=== PATIENT | female | born 1945 | race Caucasian/White ===

== ENCOUNTER 2017-10-29 09:29 | Day surgery (SDC) | payer OTHER ==
[~2017-10-29] VITALS: Ht 157.5 cm; Wt 68.6 kg
[~2017-10-29 09:29] MED LIST: AMLO10 PO; AMLO5 PO; ASPI325 PO; ASPI81CH PO; BUTALB-ACETAMI1 EAC1 PO; CLOP75; CLOP75 PO; Crestor40 MG PO; FENO48 PO; LOSA50 PO; METO25ER PO; NITR.4TPA SL; Omeprazole20 M1 PO; PANT40 PO; Pepcid40 MG PO; Prozac20 MG PO; Prozac40 MG PO; RANO500T PO; SIMV80 PO; SUCR1 PO; TOPI100 PO; TOPI50 PO; TRAM50 PO; TRIHYD253B PO; VENL75ER PO; VITAMIN D33000 UNIT PO; Zanaflex4 M1 PO
== END 2017-10-29 11:50 | disposition home or self-care (01) ==
LOC: ORSCSDS 09:29
PROVIDERS: Anesthesiology
PROC: 3E0R33Z Introduction of Anti-inflammatory into Spinal Canal, Percutaneous Approach (ICD-10-PCS; principal; 2017-10-29 10:15)
DX: M54.16 Radiculopathy, lumbar region (principal); F32.9 Major depressive disorder, single episode, unspecified; E78.5 Hyperlipidemia, unspecified; Z79.01 Long term (current) use of anticoagulants; Z79.82 Long term (current) use of aspirin; Z79.899 Other long term (current) drug therapy
CPT/HCPCS: J1040

== ENCOUNTER → 2018-06-17 | Outpatient (CLI) | payer OTHER | END | disposition home or self-care (01) | LOC: LAB SHORT 08:23 → PLD 08:23 | DX: D48.5 Neoplasm of uncertain behavior of skin (principal) | CPT/HCPCS: 88305 ==

== ENCOUNTER → 2019-09-29 | Outpatient (CLI) | payer OTHER ==
[2019-09-29 12:36] LABS: Bun/Creatinine Ratio 13.5 (12.0-20.0); Calcium, Blood 8.6 mg/dL (8.5-10.1); Creatinine, Blood 1.33 mg/dL (0.40-1.00); Potassium, Blood 3.9 mmol/L (3.5-5.5)
== END | disposition home or self-care (01) ==
LOC: LAB EV 12:25 → LAB SHORT 12:25
PROVIDERS: Physician Assistant
DX: R55 Syncope and collapse (principal)
CPT/HCPCS: 80048

== ENCOUNTER 2019-11-06 07:52 | Day surgery (SDC) | payer OTHER ==
[~2019-11-06] VITALS: Ht 157.5 cm; Wt 69.5 kg
[2019-11-06 08:33] LABS: BASOPHILS ABSOLUTE AUTO 0.06 K/mm3 (0.00-0.23); BASOPHILS PERCENT AUTO 1 % (0-2); EOSINOPHILS ABSOLUTE AUTO 0.23 K/mm3 (0.00-0.68); EOSINOPHILS PERCENT AUTO 3 % (0-6); Hematocrit 40.7 % (33.0-51.0); Hemoglobin 13.5 g/dL (11.5-16.0); IMMATURE GRAN ABSOLUTE AUTO 0.01 K/mm3 (0.00-0.10); IMMATURE GRAN PERCENT AUTO 0 % (0-1); LYMPHOCYTES ABSOLUTE AUTO 2.51 K/mm3 (0.84-5.20); LYMPHOCYTES PERCENT AUTO 36 % (21-46); MONOCYTES ABSOLUTE AUTO 0.44 K/mm3 (0.16-1.47); MONOCYTES PERCENT AUTO 6 % (4-13); Mean Corpuscular HGB 28.7 pg (26.0-34.0); Mean Corpuscular HGB Conc 33.2 g/dL (31.5-36.5); Mean Corpuscular Volume 87 fL (80-100); Mean Platelet Volume 11.4 fL (9.1-12.4); NEUTROPHILS ABSOLUTE AUTO 3.78 K/mm3 (1.96-9.15); NEUTROPHILS PERCENT AUTO 54 % (41-73); Platelet Count 211 K/mm3 (150-400); RDW Coefficient Variation 14.9 % (11.7-14.2); RDW Standard Deviation 47.7 fL (35.1-46.3); White Blood Cell Count 7.03 K/mm3 (4.00-11.30)
[2019-11-06] MEDS ORDERED: GABA300 PO (08:39)
[2019-11-06 08:45] LABS: International Normalized Ratio 1.03
[2019-11-06 08:50] LABS: Anion Gap 9 mmol/L (6-16); Blood Urea Nitrogen 26 mg/dL (8-24); Bun/Creatinine Ratio 25.7 (12.0-20.0); CHOL/HDL RATIO 3.1; CO2, Blood 22 mmol/L (21-32); Calcium, Blood 8.9 mg/dL (8.5-10.1); Chloride, Blood 109 mmol/L (98-108); Cholesterol 215 mg/dL (50-200); Creatinine, Blood 1.01 mg/dL (0.40-1.00); Glomerular Filtration Rate 57 (60-); Glucose, Blood 118 mg/dL (70-99); HDL Cholesterol 70 mg/dL (>39); LDL/HDL RATIO 1.7; Low Density Lipoprotein Chol 116 mg/dL (0-110); Potassium, Blood 3.9 mmol/L (3.5-5.5); Sodium, Blood 140 mmol/L (136-145); Triglycerides 145 mg/dL (30-160); Very Low Density Lipoprot Chol 29 mg/dL (6-32)
--- NOTE | 2019-11-06 09:05 | NUR ---
CALL LIGHT IN REACH AND IN ROOM
--- NOTE | 2019-11-06 14:35 | NUR ---
PT DRESSED, IV DC'D INTACT, TR BAND REMOVED, DRESSING TO R RADIAL ACCESS SITE, R WRIST SPLINT IN PLACE, PT DC'D BY ESCORT W DRIVING PT HOME
== END 2019-11-06 15:36 | disposition home or self-care (01) ==
LOC: MHTC 07:52
PROVIDERS: Internal Medicine Cardiovascular Disease
PROC: B201YZZ Plain Radiography of Multiple Coronary Arteries using Other Contrast (ICD-10-PCS; principal; 2019-11-06)
PROC: 4A023N7 Measurement of Cardiac Sampling and Pressure, Left Heart, Percutaneous Approach (ICD-10-PCS; principal; 2019-11-06)
DX: I35.0 Nonrheumatic aortic (valve) stenosis (principal); I25.10 Atherosclerotic heart disease of native coronary artery without angina pectoris; E78.5 Hyperlipidemia, unspecified; I12.9 Hypertensive chronic kidney disease with stage 1 through stage 4 chronic kidney disease, or unspecified chronic kidney disease; N18.9 Chronic kidney disease, unspecified; K21.9 Gastro-esophageal reflux disease without esophagitis; F32.9 Major depressive disorder, single episode, unspecified; G43.909 Migraine, unspecified, not intractable, without status migrainosus; I27.20 Pulmonary hypertension, unspecified; E66.3 Overweight; Z79.82 Long term (current) use of aspirin; Z79.02 Long term (current) use of antithrombotics/antiplatelets; Z79.899 Other long term (current) drug therapy; Z88.8 Allergy status to other drugs, medicaments and biological substances; Z88.5 Allergy status to narcotic agent; Z88.6 Allergy status to analgesic agent; Z68.28 Body mass index [BMI] 28.0-28.9, adult
CPT/HCPCS: 36415; 80048; 80061; 85025; 85347; 85610; A9270; C1769; C1887; C1894; J0153; J1644; J2250; J3010; J7030

== ENCOUNTER 2020-11-01 09:51 | Day surgery (SDC) | payer OTHER ==
[~2020-11-01] VITALS: Ht 157.5 cm; Wt 72.6 kg
[~2020-11-01 09:51] MED LIST changes: -AMLO10 PO; -BUTALB-ACETAMI1 EAC1 PO; -CLOP75; -Crestor40 MG PO; -NITR.4TPA SL; -TOPI50 PO; -TRAM50 PO; -VENL75ER PO; -VITAMIN D33000 UNIT PO
--- NOTE | 2020-11-01 10:56 | NUR ---
11/01/20 1056 Sari Johnson CALL LIGHT WITHIN REACH
--- NOTE | 2020-11-01 14:34 | NUR ---
11/01/20 1434 THERESE MEYER PT WAS SETTLED INTO RELCINER IN STEPDOWN W/SBA. PT OFFERED SIP OF WATER. PT DENIES PAIN OR NAUSEA AT THIS TIME. PT ADVISED i WILL CONTACT PT'S . UPON RETURNING TO PT IN STEPDOWN, PT REPORTS CHEST PAIN IN LEFT BREAST AREA. PT DENIES NAUSEA, DIZZINESS, LIGHTHEADEDNESS, CHEST PRESSURE. DENIES WORSENING WITH BREATHING. REPORTS IT JUST NOW STARTED. PT IMMEDIATELY PUT ON 12 LEAD EKG AND READING WAS LEFT BUNDLE BRANCH BLOCK. DR. MAHARAJ WAS CONSULTED AND ADVISED PT TO BE REFERRED TO ER BASED ON CARDIAC HX.
[2020-11-01] MEDS ORDERED: TRAM50 PO (14:53)
[2020-11-01] MEDS ORDERED: AMLO5 PO (14:53)
[2020-11-01] MEDS ORDERED: BUTALB-CAFF-AC1 EACH PO (14:55)
[2020-11-01] MEDS ORDERED: DOXA2 PO (14:56)
[2020-11-01] MEDS ORDERED: GABA300 PO (14:56)
[2020-11-01] MEDS ORDERED: PANTOPRAZOLE SO40 M2 PO (14:57)
[2020-11-01] MEDS ORDERED: TOPI50 PO (14:58)
[2020-11-01] MEDS ORDERED: Crestor40 MG PO (14:58)
[2020-11-01] MEDS ORDERED: TOPI100 PO (14:59)
[2020-11-01] MEDS ORDERED: VENL75ER PO (15:00)
[2020-11-01] MEDS ORDERED: IRBESARTAN150 M2 PO (15:01)
[2020-11-01] MEDS ORDERED: NITR.4SL SL (16:12)
[2020-11-01] MEDS ORDERED: SUCR1 PO (16:14)
[2020-11-01] MEDS ORDERED: ASPI325EC PO (16:14)
[2020-11-01] MEDS ORDERED: THERA-D2000 UNIT PO (16:14)
[2020-11-01] MEDS ORDERED: Vitamin B Comple1 EA PO (16:15)
[2020-11-01] MEDS ORDERED: CALCIUM 600 +1 EAC7 PO (16:16)
[2020-11-01] MEDS ORDERED: Norco 5-325 Ta1 EACH PO (16:34)
== END 2020-11-01 14:26 | disposition home or self-care (01) ==
LOC: ORSCSDS 09:51
PROVIDERS: Orthopaedic Surgery
PROC: 0LQ24ZZ Repair Left Shoulder Tendon, Percutaneous Endoscopic Approach (ICD-10-PCS; principal; 2020-11-01 11:15)
PROC: 0RNK4ZZ Release Left Shoulder Joint, Percutaneous Endoscopic Approach (ICD-10-PCS; principal; 2020-11-01 11:15)
PROC: 0LU24KZ Supplement Left Shoulder Tendon with Nonautologous Tissue Substitute, Percutaneous Endoscopic Approach (ICD-10-PCS; principal; 2020-11-01 11:15)
PROC: 0RBK4ZZ Excision of Left Shoulder Joint, Percutaneous Endoscopic Approach (ICD-10-PCS; principal; 2020-11-01 11:15)
DX: M75.112 Incomplete rotator cuff tear or rupture of left shoulder, not specified as traumatic (principal); M75.22 Bicipital tendinitis, left shoulder; M75.42 Impingement syndrome of left shoulder; M75.32 Calcific tendinitis of left shoulder; I10 Essential (primary) hypertension; I25.10 Atherosclerotic heart disease of native coronary artery without angina pectoris; E78.5 Hyperlipidemia, unspecified; K21.9 Gastro-esophageal reflux disease without esophagitis; Z79.82 Long term (current) use of aspirin; Z79.899 Other long term (current) drug therapy; Z79.01 Long term (current) use of anticoagulants
CPT/HCPCS: C1713; J0171; J0690; J1100; J2250; J2405; J2704; J3010; J7120

== ENCOUNTER 2020-11-01 14:11 | Emergency (ER) | payer OTHER ==
[~2020-11-01] VITALS: Ht 157.5 cm; Wt 71.2 kg
[2020-11-01] MEDS ORDERED: TRAM50 PO (14:53)
[2020-11-01] MEDS ORDERED: AMLO5 PO (14:53)
[2020-11-01] MEDS ORDERED: BUTALB-CAFF-AC1 EACH PO (14:55)
[2020-11-01] MEDS ORDERED: GABA300 PO (14:56)
[2020-11-01] MEDS ORDERED: DOXA2 PO (14:56)
[2020-11-01] MEDS ORDERED: PANTOPRAZOLE SO40 M2 PO (14:57)
[2020-11-01] MEDS ORDERED: TOPI50 PO (14:58)
[2020-11-01] MEDS ORDERED: Crestor40 MG PO (14:58)
[2020-11-01] MEDS ORDERED: TOPI100 PO (14:59)
[2020-11-01] MEDS ORDERED: VENL75ER PO (15:00)
[2020-11-01] MEDS ORDERED: IRBESARTAN150 M2 PO (15:01)
[2020-11-01 15:31] LABS: BASOPHILS ABSOLUTE AUTO 0.08 K/mm3 (0.00-0.23); BASOPHILS PERCENT AUTO 1 % (0-2); EOSINOPHILS ABSOLUTE AUTO 0.08 K/mm3 (0.00-0.68); EOSINOPHILS PERCENT AUTO 1 % (0-6); Hematocrit 40.4 % (33.0-51.0); IMMATURE GRAN ABSOLUTE AUTO 0.04 K/mm3 (0.00-0.10); IMMATURE GRAN PERCENT AUTO 0 % (0-1); LYMPHOCYTES ABSOLUTE AUTO 1.37 K/mm3 (0.84-5.20); LYMPHOCYTES PERCENT AUTO 15 % (21-46); MONOCYTES PERCENT AUTO 2 % (4-13); Mean Corpuscular HGB 26.9 pg (26.0-34.0); Mean Corpuscular HGB Conc 29.7 g/dL (31.5-36.5); Mean Corpuscular Volume 91 fL (80-100); Mean Platelet Volume 11.3 fL (9.1-12.4); NEUTROPHILS ABSOLUTE AUTO 7.55 K/mm3 (1.96-9.15); NEUTROPHILS PERCENT AUTO 81 % (41-73); Platelet Count 176 K/mm3 (150-400); RDW Coefficient Variation 14.2 % (11.7-14.2); RDW Standard Deviation 47.5 fL (35.1-46.3); Red Blood Cell Count 4.46 M/mm3 (3.80-5.20); White Blood Cell Count 9.32 K/mm3 (4.00-11.30)
[2020-11-01 16:02] LABS: Alanine Aminotransfer (ALT/SGP 30 U/L (12-78); Albumin, Blood 3.6 g/dL (3.4-5.0); Alk Phos 78 U/L (50-136); Anion Gap 10 mmol/L (6-16); Aspartate Aminotrans (AST/SGOT 19 U/L (12-37); Bilirubin, Total 0.2 mg/dL (0.1-1.0); Blood Urea Nitrogen 24 mg/dL (8-24); Bun/Creatinine Ratio 24.9 (12.0-20.0); CO2, Blood 21 mmol/L (21-32); Calcium, Blood 8.9 mg/dL (8.5-10.1); Chloride, Blood 111 mmol/L (98-108); Creatinine, Blood 0.97 mg/dL (0.40-1.00); Globulin, Blood 3.6 g/dL (2.2-4.0); Glomerular Filtration Rate >60 (60-); Glucose, Blood 149 mg/dL (70-99); Potassium, Blood 3.5 mmol/L (3.5-5.5); Sodium, Blood 142 mmol/L (136-145); Total Protein, Blood 7.2 g/dL (6.4-8.2); Troponin I <0.015 ng/mL (0.000-0.040)
[2020-11-01] MEDS ORDERED: NITR.4SL SL (16:12)
[2020-11-01] MEDS ORDERED: THERA-D2000 UNIT PO (16:14)
[2020-11-01] MEDS ORDERED: SUCR1 PO (16:14)
[2020-11-01] MEDS ORDERED: ASPI325EC PO (16:14)
[2020-11-01] MEDS ORDERED: Vitamin B Comple1 EA PO (16:15)
[2020-11-01] MEDS ORDERED: CALCIUM 600 +1 EAC7 PO (16:16)
[2020-11-01] MEDS ORDERED: Norco 5-325 Ta1 EACH PO (16:34)
== END 2020-11-01 17:13 | disposition home or self-care (01) ==
LOC: ER 14:11
PROVIDERS: Physician Assistant
DX: R07.9 Chest pain, unspecified (principal); I10 Essential (primary) hypertension; E78.5 Hyperlipidemia, unspecified; Z79.82 Long term (current) use of aspirin; Z79.899 Other long term (current) drug therapy; Z98.890 Other specified postprocedural states; Z88.5 Allergy status to narcotic agent; Z88.8 Allergy status to other drugs, medicaments and biological substances
CPT/HCPCS: 36415; 71046; 80053; 84484; 85025; 93005; 93010; 96374; 96376; 99285-25; J1170

== ENCOUNTER → 2022-09-09 | Outpatient (CLI) | payer OTHER ==
[~2022-09-09] MED LIST changes: +ASPI325EC PO; +BUTALB-CAFF-AC1 EACH PO; +CALCIUM 600 +1 EAC7 PO; +Crestor40 MG PO; +DOXA2 PO; +GABA300 PO; +IRBESARTAN150 M2 PO; +NITR.4SL SL; +Norco 5-325 Ta1 EACH PO; +PANTOPRAZOLE SO40 M2 PO; +THERA-D2000 UNIT PO; +TOPI50 PO; +TRAM50 PO; +VENL75ER PO; +Vitamin B Comple1 EA PO
== END | disposition home or self-care (01) ==
LOC: LAB SHORT 14:02 → LAB 14:02
DX: N39.0 Urinary tract infection, site not specified (principal)
CPT/HCPCS: 87077; 87086; 87147; 87186

== ENCOUNTER → 2023-02-04 | Outpatient (CLI) | payer OTHER | LOC: PLD 15:15 → LAB SHORT 15:15 | DX: D48.5 Neoplasm of uncertain behavior of skin (principal) | CPT/HCPCS: 88305 ==

== ENCOUNTER → 2023-04-17 | Outpatient (CLI) | payer OTHER ==
[2023-04-17 12:03] LABS: Creatinine, Urine Random 60.3 mg/dL (27.00-270.00)
[2023-04-17 12:06] LABS: Microalb/Creat Ratio UR, Rand 15.323 mg/g (0.000-30.000); Microalbumin, Random Urine 9.24 mg/L (0.000-20.000)
== END | disposition home or self-care (01) ==
LOC: LAB SHORT 09:49 → LAB 09:49
PROVIDERS: Hospitalist
DX: I13.0 Hypertensive heart and chronic kidney disease with heart failure and stage 1 through stage 4 chronic kidney disease, or unspecified chronic kidney disease (principal); I50.30 Unspecified diastolic (congestive) heart failure; N18.9 Chronic kidney disease, unspecified
CPT/HCPCS: 82043; 82570

== ENCOUNTER → 2023-04-29 | Outpatient (CLI) | payer OTHER | END | disposition home or self-care (01) | LOC: LAB 18:25 → LAB SHORT 18:25 | DX: N39.0 Urinary tract infection, site not specified (principal) | CPT/HCPCS: 87077; 87086; 87186 ==

== ENCOUNTER 2024-06-02 06:41 | Day surgery (SDC) | payer OTHER ==
[~2024-06-02] VITALS: Ht 157.5 cm; Wt 71.8 kg
[~2024-06-02 06:41] MED LIST changes: +Balanced Salt Epinephrine Irrigation Solution 500 mL IR SCH; +Lidocaine HCl/Pf 1% 5 ML VIAL XX SCH; +Moxifloxacin HCL 0.5 MG/0.1 ML 0.4MLSYR RIGHTEYE SCH; +NS 500 ML IV ONE; +PHENYLEPHRINE\\TROPICAMIDE\\TETRACAINE OPHTHALMIC DILATING SOLN RIGHTEYE PRN; +Povidone-Iodine 450 DROP/30 ML Solution RIGHTEYE SCH
[2024-06-02] MEDS ORDERED: Lidocaine HCl/Pf 1% 5 ML VIAL ONE (06:48)
[2024-06-02] MEDS ORDERED: FentaNYL Citrate 50 MCG/ML 2 ML Injection ONE (06:52)
[2024-06-02] MEDS ORDERED: Midazolam HCl 1MG / ML 2ML Vial ONE (06:52)
[2024-06-02] MEDS ORDERED: TOPI50 PO (07:24)
[2024-06-02] MEDS ORDERED: FOSAMAX70 MG PO (07:25)
[2024-06-02] MEDS ORDERED: Percocet 5-3251 EACH (07:26)
[2024-06-02] MEDS ORDERED: HYDCHL25 PO (07:28)
[2024-06-02] MEDS ORDERED: NS 500 ML IV ONE (07:42)
[2024-06-02 08:28] VITALS: BP 155/65
== END 2024-06-02 08:32 | disposition home or self-care (01) ==
LOC: ORSCSDS 06:41
PROVIDERS: Student in an Organized Health Care Education/Training Program
PROC: 08RJ3JZ Replacement of Right Lens with Synthetic Substitute, Percutaneous Approach (ICD-10-PCS; principal; 2024-06-02 08:00)
DX: H25.813 Combined forms of age-related cataract, bilateral (principal); I10 Essential (primary) hypertension; K21.9 Gastro-esophageal reflux disease without esophagitis; Z79.82 Long term (current) use of aspirin; Z79.899 Other long term (current) drug therapy
CPT/HCPCS: 82947; J2001; J2250; J3010; J7040; V2632

== ENCOUNTER 2024-06-09 06:56 | Day surgery (SDC) | payer OTHER ==
[~2024-06-09] VITALS: Ht 157.5 cm; Wt 71.7 kg
[~2024-06-09 06:56] MED LIST changes: +FOSAMAX70 MG PO; +HYDCHL25 PO; +Lidocaine HCl/Pf 1% 5 ML VIAL ONE; +Moxifloxacin HCL 0.5 MG/0.1 ML 0.4MLSYR LEFTEYE SCH; -Moxifloxacin HCL 0.5 MG/0.1 ML 0.4MLSYR RIGHTEYE SCH; +PHENYLEPHRINE\\TROPICAMIDE\\TETRACAINE OPHTHALMIC DILATING SOLN LEFTEYE PRN; -PHENYLEPHRINE\\TROPICAMIDE\\TETRACAINE OPHTHALMIC DILATING SOLN RIGHTEYE PRN; +Percocet 5-3251 EACH; +Povidone-Iodine 450 DROP/30 ML Solution LEFTEYE SCH; -Povidone-Iodine 450 DROP/30 ML Solution RIGHTEYE SCH
[2024-06-09] MEDS ORDERED: NS 500 ML IV ONE (07:41)
[2024-06-09] MEDS ORDERED: Povidone-Iodine 450 DROP/30 ML Solution XX ONE (07:50)
[2024-06-09] MEDS ORDERED: Midazolam HCl 1MG / ML 2ML Vial ONE (07:54)
[2024-06-09] MEDS ORDERED: Balanced Salt Epinephrine Irrigation Solution 500 mL IR ONE (08:02)
[2024-06-09] MEDS ORDERED: Moxifloxacin HCL 0.5 MG/0.1 ML 0.4MLSYR XX ONE (08:02)
[2024-06-09 08:21] VITALS: BP 148/63
== END 2024-06-09 08:38 | disposition home or self-care (01) ==
LOC: ORSCSDS 06:56
PROVIDERS: Student in an Organized Health Care Education/Training Program
PROC: 08RK3JZ Replacement of Left Lens with Synthetic Substitute, Percutaneous Approach (ICD-10-PCS; principal; 2024-06-09 08:00)
DX: E11.36 Type 2 diabetes mellitus with diabetic cataract (principal); H25.812 Combined forms of age-related cataract, left eye; I10 Essential (primary) hypertension; Z96.1 Presence of intraocular lens; Z79.899 Other long term (current) drug therapy
CPT/HCPCS: 82947; J2001; J2250; J7040; V2632

== ENCOUNTER 2024-12-03 20:31 | Observation (INO) | payer OTHER ==
[~2024-12-03] VITALS: Ht 165.1 cm; Wt 79.4 kg
[~2024-12-03 20:31] MED LIST changes: -Balanced Salt Epinephrine Irrigation Solution 500 mL IR SCH; -Lidocaine HCl/Pf 1% 5 ML VIAL ONE; -Lidocaine HCl/Pf 1% 5 ML VIAL XX SCH; -Moxifloxacin HCL 0.5 MG/0.1 ML 0.4MLSYR LEFTEYE SCH; -NS 500 ML IV ONE; -PHENYLEPHRINE\\TROPICAMIDE\\TETRACAINE OPHTHALMIC DILATING SOLN LEFTEYE PRN; -Povidone-Iodine 450 DROP/30 ML Solution LEFTEYE SCH
[2024-12-03 21:15] LABS: BASOPHILS ABSOLUTE AUTO 0.12 K/mm3 (0.00-0.23); BASOPHILS PERCENT AUTO 1 % (0-2); EOSINOPHILS PERCENT AUTO 4 % (0-6); Hematocrit 36.2 % (33.0-51.0); Hemoglobin 12.4 g/dL (11.5-16.0); IMMATURE GRAN ABSOLUTE AUTO 0.05 K/mm3 (0.00-0.10); IMMATURE GRAN PERCENT AUTO 1 % (0-1); LYMPHOCYTES ABSOLUTE AUTO 3.18 K/mm3 (0.84-5.20); LYMPHOCYTES PERCENT AUTO 34 % (21-46); MONOCYTES PERCENT AUTO 8 % (4-13); Mean Corpuscular HGB Conc 34.3 g/dL (31.5-36.5); Mean Corpuscular Volume 87 fL (80-100); Mean Platelet Volume 10.7 fL (9.1-12.4); NEUTROPHILS PERCENT AUTO 52 % (41-73); Platelet Count 236 K/mm3 (150-400); RDW Coefficient Variation 13.9 % (11.7-14.2); RDW Standard Deviation 44.7 fL (35.1-46.3); Red Blood Cell Count 4.14 M/mm3 (3.80-5.20); White Blood Cell Count 9.35 K/mm3 (4.00-11.30)
[2024-12-03 21:33] LABS: International Normalized Ratio 0.97; Prothrombin Time Results 10.4 Sec (9.7-11.5)
[2024-12-03 21:48] LABS: Albumin, Blood 3.6 g/dL (3.4-5.0); Albumin/Globulin Ratio 0.9 (0.8-1.8); Bilirubin, Total 0.5 mg/dL (0.1-1.0); Bun/Creatinine Ratio 18.3 (12.0-20.0); Calcium, Blood 8.8 mg/dL (8.5-10.1); Creatinine, Blood 1.2 mg/dL (0.40-1.00); Globulin, Blood 4.1 g/dL (2.2-4.0); Potassium, Blood 3.6 mmol/L (3.5-5.5); Total Protein, Blood 7.7 g/dL (6.4-8.2)
[2024-12-04] MEDS ORDERED: FLU VACC TS2024-25(6MOS UP)/PF 45 MCG/0.5 ML SYRINGE IM ONE (00:30)
[2024-12-04] MEDS ORDERED: Magnesium Hydroxide Conc 10 ML UDC PO PRN (00:30)
[2024-12-04] MEDS ORDERED: Ondansetron HCl 2 MG / ML 2ML Vial IV PRN (00:30)
[2024-12-04] MEDS ORDERED: Clopidogrel Bisulfate 300 MG Cap PO ONE (00:40)
[2024-12-04 07:27] LABS: BASOPHILS ABSOLUTE AUTO 0.14 K/mm3 (0.00-0.23); BASOPHILS PERCENT AUTO 1 % (0-2); EOSINOPHILS ABSOLUTE AUTO 0.45 K/mm3 (0.00-0.68); EOSINOPHILS PERCENT AUTO 4 % (0-6); Hemoglobin 12.3 g/dL (11.5-16.0); IMMATURE GRAN ABSOLUTE AUTO 0.06 K/mm3 (0.00-0.10); IMMATURE GRAN PERCENT AUTO 1 % (0-1); LYMPHOCYTES ABSOLUTE AUTO 3.24 K/mm3 (0.84-5.20); LYMPHOCYTES PERCENT AUTO 28 % (21-46); MONOCYTES ABSOLUTE AUTO 0.82 K/mm3 (0.16-1.47); MONOCYTES PERCENT AUTO 7 % (4-13); Mean Corpuscular HGB 30.4 pg (26.0-34.0); Mean Corpuscular HGB Conc 35.1 g/dL (31.5-36.5); Mean Corpuscular Volume 87 fL (80-100); Mean Platelet Volume 10.9 fL (9.1-12.4); NEUTROPHILS ABSOLUTE AUTO 7.05 K/mm3 (1.96-9.15); NEUTROPHILS PERCENT AUTO 60 % (41-73); Platelet Count 234 K/mm3 (150-400); RDW Standard Deviation 44.6 fL (35.1-46.3); Red Blood Cell Count 4.04 M/mm3 (3.80-5.20); White Blood Cell Count 11.76 K/mm3 (4.00-11.30)
[2024-12-04 07:40] LABS: Albumin, Blood 3.5 g/dL (3.4-5.0); Albumin/Globulin Ratio 0.9 (0.8-1.8); Bilirubin, Total 0.5 mg/dL (0.1-1.0); Bun/Creatinine Ratio 18.9 (12.0-20.0); Calcium, Blood 9.2 mg/dL (8.5-10.1); Creatinine, Blood 1.11 mg/dL (0.40-1.00); Globulin, Blood 3.7 g/dL (2.2-4.0); Potassium, Blood 3.5 mmol/L (3.5-5.5); Total Protein, Blood 7.2 g/dL (6.4-8.2)
[2024-12-04 07:44] LABS: CHOL/HDL RATIO 2.9; Cholesterol 197 mg/dL (50-200); HDL Cholesterol 68 mg/dL (>39); LDL/HDL RATIO 1.4; Low Density Lipoprotein Chol 92 mg/dL (0-110); Triglycerides 184 mg/dL (30-160); Very Low Density Lipoprot Chol 36 mg/dL (6-32)
[2024-12-04] MEDS ORDERED: Clopidogrel Bisulfate 75 MG Tab PO SCH (09:00)
[2024-12-04] MEDS ORDERED: Sennosides 8.6 MG Tab PO SCH (09:00)
[2024-12-04] MEDS ORDERED: Irbesartan 150 MG Tab PO SCH (09:00)
[2024-12-04] MEDS ORDERED: HydroCHLOROthiazide 25 mg Tab PO SCH (09:00)
[2024-12-04] MEDS ORDERED: Heparin Sodium 5000 Units/ML 1ML MDV SC SCH (09:00)
[2024-12-04] MEDS ORDERED: Aspirin 81 MG Chew PO SCH (09:00)
[2024-12-04] MEDS ORDERED: AmLODIPine Besylate 5 MG Tab PO SCH (11:00)
[2024-12-04] MEDS ORDERED: CLOP75 PO (15:19)
[2024-12-04 15:43] VITALS: BP 130/73
[2024-12-05] MEDS ORDERED: Clopidogrel Bisulfate 75 MG Tab PO SCH (05:00)
== END 2024-12-04 15:42 | disposition home or self-care (01) ==
LOC: ER 20:31 → ERHOLD 20:32
PROVIDERS: Emergency Medicine; Family Medicine; Student in an Organized Health Care Education/Training Program; ADMIT Student in an Organized Health Care Education/Training Program
DX: G45.9 Transient cerebral ischemic attack, unspecified (principal); G81.94 Hemiplegia, unspecified affecting left nondominant side; I12.9 Hypertensive chronic kidney disease with stage 1 through stage 4 chronic kidney disease, or unspecified chronic kidney disease; E11.22 Type 2 diabetes mellitus with diabetic chronic kidney disease; N18.31 Chronic kidney disease, stage 3a; E78.5 Hyperlipidemia, unspecified; Z88.5 Allergy status to narcotic agent; Z88.8 Allergy status to other drugs, medicaments and biological substances; Z79.82 Long term (current) use of aspirin; Z79.899 Other long term (current) drug therapy
CPT/HCPCS: 70450; 70496; 70498; 70551; 80053; 80061; 82947; 83036; 84484; 85025; 85610; 85730; 93005; 93010; 93308; 93321; 99285-25; A9270; G0378; J1644; Q9967

== ENCOUNTER → 2025-04-21 | Outpatient (CLI) | payer OTHER ==
[2025-04-22 11:07] LABS: Campylobacter Sp Not Detected (NOT DETECT); E. Coli O157 Not Detected (NOT DETECT); Enteroaggregative E. coli-EAEC Not Detected (NOT DETECT); Enteropathogenic E. coli-EPEC Not Detected (NOT DETECT); Enterotoxigenic E. coli-ETEC Not Detected (NOT DETECT); Salmonella Sp Not Detected (NOT DETECT); Shiga Toxin-prod E. coli-STEC Not Detected (NOT DETECT); Shigella/Enteroin E. coli-EIEC Not Detected (NOT DETECT); Vibrio Sp Not Detected (NOT DETECT)
== END ==
LOC: LAB 20:00 → LAB SHORT 20:00
PROVIDERS: Hospitalist
DX: R19.7 Diarrhea, unspecified (principal)
CPT/HCPCS: 87507

== ENCOUNTER 2025-05-10 13:27 | Emergency (ER) | payer OTHER ==
[~2025-05-10] VITALS: Ht 160 cm; Wt 70.3 kg
[2025-05-10 13:43] VITALS: BP 148/71
== END 2025-05-10 15:41 | disposition home or self-care (01) ==
LOC: ER 13:27
DX: S00.12XA Contusion of left eyelid and periocular area, initial encounter (principal); S00.83XA Contusion of other part of head, initial encounter; I10 Essential (primary) hypertension; E78.5 Hyperlipidemia, unspecified; Z95.2 Presence of prosthetic heart valve; Z88.5 Allergy status to narcotic agent; Z88.8 Allergy status to other drugs, medicaments and biological substances; Z79.02 Long term (current) use of antithrombotics/antiplatelets; Z79.82 Long term (current) use of aspirin; Z79.83 Long term (current) use of bisphosphonates; Z79.899 Other long term (current) drug therapy; W20.8XXA Other cause of strike by thrown, projected or falling object, initial encounter
CPT/HCPCS: 70450; 70486; 99283-25